=== PATIENT | male | born 1950 | race Hispanic/Latino ===

== ENCOUNTER 2018-03-31 08:21 | Day surgery (SDC) | payer MEDICARE ==
[2018-03-30 12:33] VITALS: BMI 37.3
[2018-03-31] MEDS ORDERED: Lidocaine 2% Jelly (Uro-Jet) ONE (10:18)
[2018-03-31] MEDS ORDERED: cefTRIAXone 1 gm 1 GM/100 ML BAG IVPB ONE (10:18)
[2018-03-31] MEDS ORDERED: Midazolam 2 MG/2 ML VIAL ONE (10:30)
[2018-03-31] MEDS ORDERED: Propofol 10 mg/ml Inj (20 ML) ONE (10:31)
[2018-03-31] MEDS ORDERED: Lactated Ringer's 1,000 ML IV SCH (11:00)
[2018-03-31] MEDS ORDERED: Oxycodone/Acetaminophen 5/325 mg Tab PO PRN (11:19)
[2018-03-31] MEDS: HYDROmorphone 0.5 mg/0.5 ml ISec IVP PRN ×2 (11:25→11:45)
[2018-03-31] MEDS ORDERED: HYDROmorphone 0.5 mg/0.5 ml ISec ONE (11:25)
[2018-03-31 12:38] VITALS: PULSE 71
[2018-03-31 14:06] VITALS: RESP 16
[2018-03-31 15:54] VITALS: BP 115/73; TEMP 97.9; O2SAT 98
--- NOTE | 2018-04-11 12:19 | OP ---
PROCEDURE DATE: 03/31/2018 PREOPERATIVE DIAGNOSIS: Bladder cancer. POSTOPERATIVE DIAGNOSIS: Bladder cancer, with multiple lesions including some more aggressive in appearance than others. UROLOGY OPERATIVE FINDINGS: Listed below. PROCEDURES: Cystoscopy and a transurethral resection of bladder tumor, multiple lesions. SURGEON: Dillon Rivera MD COMPLICATIONS: There were no complications. BLOOD LOSS: Less than 10 mL. From the initial procedure, the patient is very familiar to me. I have subsequently seen him in the office since then and reviewed the pathology. I am very familiar with my original findings. I am actually looking at the initial evaluation. At the termination of the procedure, there is no visible tumor present. Ureteral orifice, clear efflux. The patient had multiple lesions. Urology operative findings: 1. Normal anterior urethra, no stricture. 2. The verumontanum is visually occlusive. 3. Ureteral orifices have clear efflux bilaterally. 4. There are multiple apparent lesions. 5. We inspected the bladder first with the cystoscope with a 30 and a 70 degree lens. 6. I also inspected the bladder tumor in the office with the flexible scope. 7. We this procedure. I do want to mention that the lesion on the left lateral wall is appearing a little more aggressive. We resected it very deep. See the picture, the initial pictures where we have nice fibers. No holes noted, but we went very deep. Recorded (see below). The procedure itself is a transurethral resection of the bladder tumor. We sent down multiple lesions, multiple . At the termination of the procedure, there is no visible tumor. DESCRIPTION OF PROCEDURE: After obtaining informed consent, the patient was placed on table. Routine monitors were placed. Time-out was called to confirm the patient and positioning. The cystoscope was introduced via urethra. We inspected the bladder with both the 30 degree and 70 degree lens. We now found more lesions than we had seen in the initial cystoscope, most of them around the right lateral wall and right posterior wall, but there is one lesion on the left side. Multiple other previous scar areas from previous resections are noted. We now converted to the resectoscope. We began slowly, meticulously, carefully and we worked on the small lesions to bigger lesions. We now turned our attention towards the left side. We found this more aggressive in the . We inspected carefully, slowly, meticulously. Each time between each tumor we were of course evacuating the specimen. We are now on the patient's left side evacuating the specimen, sent as prostate. We looked, we inspected, we fulgurated the base. At this point, we the Deng catheter via the urethra. The urethra we used a large sized Deng catheter to make sure we have good adequate drainage. We irrigated gently. There is subsequently no bleeding. The patient tolerated the procedure well without complication. I do want to mention, we did a rectal exam that showed a 20 to 30 g prostate, soft and smooth. The patient tolerated the procedure without complications. Dillon Rivera MD
== END 2018-03-31 14:55 | disposition home or self-care (01) ==
LOC: C.SDS 08:21
PROVIDERS: ATTEND Urology
DX: R31.0 Gross hematuria (principal); C67.9 Malignant neoplasm of bladder, unspecified
CPT/HCPCS: 52240; 88305; J0696; J1170; J1580